=== PATIENT | female | born 1950 | race Caucasian/White ===

== ENCOUNTER 2017-09-05 11:32 | Emergency (ER) | payer OTHER ==
[2017-09-05 11:49] VITALS: BP 159/105; PULSE 84; RESP 18; TEMP 98.1; O2SAT 93
[2017-09-05] MEDS ORDERED: IBUPROFEN 600 MG TAB PO ONE ×2 (14:33→14:35)
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
== END 2017-09-05 15:42 | disposition home or self-care (01) ==
LOC: EDUNIT#
DX: S16.1XXA Strain of muscle, fascia and tendon at neck level, initial encounter (principal); S39.012A Strain of muscle, fascia and tendon of lower back, initial encounter; B20 Human immunodeficiency virus [HIV] disease; I10 Essential (primary) hypertension; E11.9 Type 2 diabetes mellitus without complications; Z79.84 Long term (current) use of oral hypoglycemic drugs; V49.40XA Driver injured in collision with unspecified motor vehicles in traffic accident, initial encounter; Y92.410 Unspecified street and highway as the place of occurrence of the external cause; Y93.89 Activity, other specified
CPT/HCPCS: L0172

== ENCOUNTER 2017-09-06 09:31 | Emergency (ER) | payer OTHER ==
[2017-09-06] MEDS ORDERED: IBUPROFEN 600 MG TAB PO ONE (11:05)
[2017-09-06] MEDS ORDERED: LIDOCAINE 4%/MENTHOL 1% PATCH TD ONE (11:05)
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
[2017-09-06] MEDS ORDERED: DIAZEPAM 5 MG TAB ONE (11:39)
[2017-09-06] MEDS ORDERED: DIAZEPAM 5 MG TAB PO ONE (11:40)
[2017-09-06 11:41] VITALS: RESP 16
[2017-09-06 14:13] VITALS: BP 160/99; PULSE 100; TEMP 98.1; O2SAT 94
[2017-09-06] MEDS ORDERED: PATCH REMOVAL 1 EA PATCH TD SCH (21:00)
== END 2017-09-06 14:41 | disposition home or self-care (01) ==
DX: S39.92XD Unspecified injury of lower back, subsequent encounter (principal); I10 Essential (primary) hypertension; E11.9 Type 2 diabetes mellitus without complications; Z79.4 Long term (current) use of insulin; V49.40XD Driver injured in collision with unspecified motor vehicles in traffic accident, subsequent encounter